=== PATIENT | female | born 1985 | race Two or more races ===

== ENCOUNTER 2020-08-19 16:08 | Outpatient (CLI) | payer OTHER | END 2020-08-19 16:40 | disposition home or self-care (01) | LOC: OFIC 805 16:08 | PROVIDERS: ATTEND Otolaryngology Otology & Neurotology | DX: H66.91 Otitis media, unspecified, right ear (principal); H92.01 Otalgia, right ear; H69.81 Other specified disorders of Eustachian tube, right ear ==

== ENCOUNTER 2020-08-30 07:41 | Day surgery (SDC) | payer OTHER | END 2020-08-30 15:20 | disposition home or self-care (01) | LOC: CIR.AMB 07:41 | PROVIDERS: ATTEND Otolaryngology Otology & Neurotology | DX: H65.21 Chronic serous otitis media, right ear (principal); Z20.828 Contact with and (suspected) exposure to other viral communicable diseases ==

== ENCOUNTER → 2020-09-06 | Outpatient (CLI) | payer OTHER | END | disposition home or self-care (01) | LOC: OFIC 805 11:00 | PROVIDERS: ATTEND Otolaryngology Otology & Neurotology | DX: H65.21 Chronic serous otitis media, right ear (principal); H92.01 Otalgia, right ear; H69.81 Other specified disorders of Eustachian tube, right ear ==

== ENCOUNTER 2020-09-13 11:27 | Outpatient (CLI) | payer OTHER | END 2020-09-13 12:30 | disposition home or self-care (01) | LOC: OFIC 805 11:27 | PROVIDERS: ATTEND Otolaryngology Otology & Neurotology | DX: H65.21 Chronic serous otitis media, right ear (principal); H92.01 Otalgia, right ear; H69.81 Other specified disorders of Eustachian tube, right ear; H66.3X1 Other chronic suppurative otitis media, right ear ==

== ENCOUNTER 2020-09-13 12:17 | Outpatient (CLI) | payer OTHER | END 2020-09-13 12:25 | disposition home or self-care (01) | LOC: TOM 12:17 | PROVIDERS: ATTEND Otolaryngology Otology & Neurotology | DX: H90.11 Conductive hearing loss, unilateral, right ear, with unrestricted hearing on the contralateral side (principal) ==

== ENCOUNTER 2020-09-18 11:53 | Outpatient (CLI) | payer OTHER | END 2020-09-18 12:30 | disposition home or self-care (01) | LOC: OFIC 805 11:53 | PROVIDERS: ATTEND Otolaryngology Otology & Neurotology | DX: H90.11 Conductive hearing loss, unilateral, right ear, with unrestricted hearing on the contralateral side (principal); H66.3X1 Other chronic suppurative otitis media, right ear; H69.81 Other specified disorders of Eustachian tube, right ear ==

== ENCOUNTER → 2020-11-04 | Outpatient (CLI) | payer OTHER | END | disposition home or self-care (01) | LOC: OFIC 805 14:45 | PROVIDERS: ATTEND Otolaryngology Otology & Neurotology | DX: H65.21 Chronic serous otitis media, right ear (principal); H92.01 Otalgia, right ear; H69.81 Other specified disorders of Eustachian tube, right ear; H66.3X1 Other chronic suppurative otitis media, right ear; H90.11 Conductive hearing loss, unilateral, right ear, with unrestricted hearing on the contralateral side ==